=== PATIENT | female | born 1980 | race African-American/Black ===

== ENCOUNTER 2019-03-06 01:34 | Inpatient (IN) | payer OTHER ==
[~2019-03-06] VITALS: Ht 167.6 cm; Wt 61.1 kg
[2019-03-06 02:31] LABS: Basophils # (auto) 0 uL; Basophils % (auto) 0.1 % (0.0-2.0); Eosinophils # (auto) 0 uL; Hematocrit 37.8 % (36.0-46.0); Hemoglobin 12.5 g/dL (12.2-16.2); Lymphocytes # (auto) 0.5 uL; Lymphocytes % (auto) 4.5 % (10.0-50.0); Mean Corpuscular Hemoglobin 27.1 pg (28.0-32.0); Mean Corpuscular Volume 82.2 fL (80.0-100.0); Monocytes # (auto) 0.5 uL; Monocytes % (auto) 4.5 % (0.0-12.0); Neutrophils # (auto) 10.4 uL; Neutrophils % (auto) 90.9 % (37.0-80.0); Platelet Count (auto) 228 10^3/uL (140-450); Red Cell Distribution Width 13.9 % (11.8-14.3); White Blood Cell 11.4 10^3/uL (4.4-10.8)
[2019-03-06 02:47] LABS: Calcium 8.3 mg/dL (8.5-10.1); Chloride 100 mmol/L (98-107); Potassium 3.7 mmol/L (3.5-5.1); Sodium 132 mmol/L (136-145)
[2019-03-06 02:48] LABS: Acetaminophen < 2.0 ug/mL (10-30); Salicylate < 1.7 mg/dL (2.8-20.0)
[2019-03-06 02:50] LABS: Alanine Aminotransferase 35 U/L (13-56); Albumin 3.7 g/dL (3.4-5.0); Anion Gap 10 (5-15); BUN/Creatinine Ratio 8.3; Blood Alcohol < 3.0 mg/dL (0-5); Blood Urea Nitrogen 9 mg/dL (7-18); Carbon Dioxide 22 mmol/L (21-32); GFR African American 74 mL/min; GFR Non-African American 61 mL/min; Glucose 151 mg/dL (74-106)
[2019-03-06 02:55] LABS: Alkaline Phosphatase 64 U/L (45-117); Aspartate Aminotransferase 36 U/L (15-37); Bilirubin, Total 0.4 mg/dL (0.2-1.0); Total Protein 7.4 g/dL (6.4-8.2)
[2019-03-06 05:24] LABS: Alcohol, Urine < 3.0 mg/dL (0-5); Amphetamine Screen, Urine NEGATIVE (NEGATIVE); Barbiturate Scree,Urine NEGATIVE (NEGATIVE); Benzodiazephine Screen, Urine NEGATIVE (NEGATIVE); Cannabinoid Screen, Urine NEGATIVE (NEGATIVE); Cocaine Screen, Urine NEGATIVE (NEGATIVE); Opiate Scree,Urine NEGATIVE (NEGATIVE); Phencyclidine Screen, Urine NEGATIVE (NEGATIVE)
[2019-03-06 09:33] LABS: Urine Amorphous Crystal FEW /hpf (None Seen); Urine Bacteria FEW /hpf (None Seen); Urine Blood 1+ /uL (Negative); Urine Mucus FEW (None Seen); Urine Specific Gravity 1.022 (1.001-1.035); Urine WBC 9 /hpf (0 - 5)
[2019-03-06] MEDS ORDERED: MORPHINE SULF INJ 2 MG/ML SYRINGE 1ML IV PRN (11:15)
[2019-03-06] MEDS ORDERED: ONDANSETRON HCL 4 MG/2 ML VIAL IV PRN (11:15)
[2019-03-06] MEDS ORDERED: NITROGLYCERIN 0.4 MG SL TAB SL PRN (11:15)
[2019-03-06] MEDS: POTASSIUM CHL 20MEQ/100ML 100 ML IV SCH ×2 (11:58→15:31)
[2019-03-06] MEDS: SODIUM CHLORIDE 0.9% 1,000 ML IV SCH ×2 (12:14→20:54)
[2019-03-06] MEDS ORDERED: BUPR100T14 PO (13:28)
[2019-03-06] MEDS ORDERED: RISP0.5T12 PO (13:28)
--- NOTE | 2019-03-06 14:00 | NUR ---
Per Lorene (House Sup) no need for Tele Psy consult at this time until patient is medically clear.
[2019-03-06 14:15] VITALS: BP 143/75
--- NOTE | 2019-03-06 14:30 | NUR ---
Telemetry admit from ER JEREMIEISHA admitted to Telemetry unit after SBAR received. Patient oriented to BELLE VELASQUEZ, primary RN, unit, room, bed, and unit policies regarding patient care and visiting hours. Patient now on continuous telemetry monitoring, tele box # [id number] and telemetry reading on arrival to unit is . Patient placed on bedside oxygen, weighed by bed scale and encouraged to call if they need something. All questions and concerns addressed, patient verbalized understanding.
--- NOTE | 2019-03-06 14:30 | NUR ---
EKG 12 LEADS DONE , READ BY .
[2019-03-06 17:00] VITALS: BP 134/79
--- NOTE | 2019-03-06 19:02 | NUR ---
DAOG 12 LEADS DONE AND REPORTED TO DR. SHIPMAN. Signed: 03/06/19 at 1902 by BELLE VELASQUEZ RN
[2019-03-06 22:06] VITALS: BP 144/77
--- NOTE | 2019-03-06 23:06 | NUR ---
EKG 12 LEADS DONE: EKG 12 LEADS DONE AND REPORTED TO DR. RAUL MD COVERING FOR DR. SHIPMAN PATIENTS. UPDATED ON PATIENTS STATUS AND MEDICAL STATE AND REVIEW OF EKG 12 LEAD. SAID TO OBTAIN ANOTHER EKG IN THE AM. NO NEW ORDERS GIVEN
--- NOTE | 2019-03-07 02:21 | NUR ---
EKG 12 LEADS DONE: EKG 12 LEADS DONE AND PLACED IN CHART AT THIS TIME. NO S/S OF DISTRESS SOB NOTED. PATIENT RESTING IN BED WITH BREATHS EVEN AND UNLABORED. SITTER AT THE BEDSIDE.
[2019-03-07 05:00] VITALS: BP 136/85
[2019-03-07] MEDS: SODIUM CHLORIDE 0.9% 1,000 ML IV SCH ×2 (05:39→14:25)
--- NOTE | 2019-03-07 05:51 | NUR ---
Opening Shift Note Assumed care of patient, awake and alert oriented x4. No S/S of distress/SOB or pain noted. Bed is in lowest locked position with bed rails up x2 and call light is within reach of the patient. Sitter at the bedside. Instructed on POC and to call for assist PRN. Addendum: 03/07/19 at 0603 by Cindy Hernández RN RN wrong date and time: Date meant for 03/06/19 at 194
--- NOTE | 2019-03-07 06:30 | NUR ---
EKG 12 LEADS DONE: EKG 12 LEADS DONE AND PLACED IN CHART AT THIS TIME. NO S/S OF DISTRESS SOB NOTED. PATIENT RESTING IN BED WITH BREATHS EVEN AND UNLABORED. SITTER IS AT THE BEDSIDE.
[2019-03-07 06:56] LABS: Basophils # (auto) 0 uL; Basophils % (auto) 0.2 % (0.0-2.0); Eosinophils # (auto) 0 uL; Eosinophils % (auto) 0.1 % (0.0-7.0); Hematocrit 37.7 % (36.0-46.0); Hemoglobin 12.4 g/dL (12.2-16.2); Lymphocytes # (auto) 1.4 uL; Lymphocytes % (auto) 12.8 % (10.0-50.0); Mean Corpuscular Hgb Conc. 32.8 g/dL (32.0-36.0); Mean Corpuscular Volume 82.4 fL (80.0-100.0); Monocytes # (auto) 1.1 uL; Monocytes % (auto) 10.4 % (0.0-12.0); Neutrophils # (auto) 8.3 uL; Neutrophils % (auto) 76.5 % (37.0-80.0); Platelet Count (auto) 206 10^3/uL (140-450); Red Blood Cells 4.57 10^6/uL (4.0-5.20); Red Cell Distribution Width 14.1 % (11.8-14.3); White Blood Cell 10.9 10^3/uL (4.4-10.8)
[2019-03-07 07:12] LABS: BUN/Creatinine Ratio 5.4; Magnesium 2.1 mg/dL (1.6-2.6); Potassium 4.2 mmol/L (3.5-5.1)
--- NOTE | 2019-03-07 07:30 | NUR ---
Opening Shift Note Assumed care of patient, awake and alert, oriented x 4 and verbally responsive. Respiratory even and unlabored. No S/S of distress/SOB or pain. Skin is warm and dry to touch. No s/s any injuries noted. Instructed on POC and to call for assist PRN, will continue to monitor for changes Q1hr and PRN.
[2019-03-07 09:00] VITALS: BP 142/81
--- NOTE | 2019-03-07 09:41 | NUR ---
Per Dr. Torrez patient is medically clear from his point of view, will call Tele psy consult.
--- NOTE | 2019-03-07 09:50 | NUR ---
Tele Psy consult placed to tele [employer]. Awaiting to call back.
[2019-03-07 13:00] VITALS: BP 127/73
--- NOTE | 2019-03-07 13:45 | NUR ---
Received Psy report recommend to transfer patient to inpatient psychiatry service, jessica garcía (Lorene) and Lit (KAI) notified. SS consult placed.
--- NOTE | 2019-03-07 13:47 | NUR ---
Per Lorene (house sup) needs to place SS consult for inpatient psy facility, order placed. Awaiting for SS to call back.
--- NOTE | 2019-03-07 13:47 | NUR ---
Faxed Psy report to [facility] per Dr. Recinos requested # .
--- NOTE | 2019-03-07 14:00 | NUR ---
Patient notified regarding patient needs to transfer to inpatient psy facility.
--- NOTE | 2019-03-07 15:00 | NUR ---
Spoke to Tru (adrián) regarding , informed her that Diana (RN) will do it.
--- NOTE | 2019-03-07 15:40 | NUR ---
Spoke to Lit COREY) regarding , instructed to call Diana (LYNN) to do it.
--- NOTE | 2019-03-07 15:52 | NUR ---
Received a call from Lit COREY) said Elli (TERRENCE) needs recommendation from psychiatrist and fax to [phone]. Still wait for , will fax everything.
--- NOTE | 2019-03-07 16:45 | NUR ---
51/50 done by Delfino BAILEY.
--- NOTE | 2019-03-07 16:50 | NUR ---
FAXED AND RECOMMENDATION FROM PSYCHIATRIST TO RAMESH (TERRENCE).
--- NOTE | 2019-03-07 17:00 | NUR ---
Received a call from Elli velasquez already spoke with Dr. Torrez regarding transfer situation.
--- NOTE | 2019-03-07 17:30 | NUR ---
Received a call from [employer] , spoke to Soraida said already received patient info.
--- NOTE | 2019-03-07 19:10 | NUR ---
Opening Shift Note Received report from Ely giraldo RN. Assumed care of patient, awake and alert, resting in bed, with family at bedside. No S/S of distress/SOB or pain. Instructed on POC and to call for assist PRN, will continue to monitor for changes Q1hr and PRN. Bed placed in lowest position and call light within reach.
[2019-03-07 21:33] VITALS: BP 143/84
[2019-03-08] MEDS: SODIUM CHLORIDE 0.9% 1,000 ML IV SCH ×3 (02:10→09:35)
[2019-03-08 05:38] VITALS: BP 123/73
--- NOTE | 2019-03-08 07:00 | NUR ---
ROUNDS PATIENT IS RESTING IN BED ALERT AND AWAKE, NO DISTRESS NOTED AND PATIENT DENIES PAIN.
--- NOTE | 2019-03-08 07:30 | NUR ---
OPENING NOTE ASSUMED CARE OF PT. PT ALERT AND ORIENTED. NO S/S OF SOB/DISTRESS. DENIES ANY PAIN. SAFETY PRECAUTIONS IN PLACE. BED SET TO LOWEST POSITION/LOCKED. BEDSIDE RAILS UP X2. SITTER AT BEDSIDE. CALL LIGHT WITH IN REACH. INSTRUCTED PT TO CALL FOR ASSISTANCE. UPDATE ON POC. PT VERBALIZED UNDERSTANDING. WILL CONTINUE TO MONITOR Q1HR AND PRN.
--- NOTE | 2019-03-08 08:10 | NUR ---
I spoke to Rubio at [facility] ( ph [phone]) and he stated pt is on their "board" to find a facility, he will put in his notes on progression of finding a facility for this pt. So far we have no facilities for acceptance of pt.
[2019-03-08 08:27] VITALS: BP 130/90
--- NOTE | 2019-03-08 08:43 | NUR ---
spoke to o/c cm for [facility] and he stated [facility] is resonsible for psych care for this pt since it is a carve out to the insurance. [facility]'s ph # is [phone]. I was calling [employer] to see if they had any success with certain facilities to speed up the process but CM stated he was not aware of any particular facility.
[2019-03-08 13:00] VITALS: BP 167/93
[2019-03-08 15:03] VITALS: BP 145/93
[2019-03-08 17:00] VITALS: BP 127/74
--- NOTE | 2019-03-08 19:30 | NUR ---
Opening Shift Note Assumed care of patient, from Carine RN. Patient is awake and alert x4. Family members noted at the bedside. Patient denies pain at this time. Instructed on plan of care and to call for assistance as needed, patient verbalized understanding. Bed is locked in lowest position, side rails x 2 are up, call light is within reach, and sitter noted at bedside for safety precautions.
[2019-03-08 22:00] VITALS: BP 130/72
--- NOTE | 2019-03-08 22:30 | NUR ---
IV INSERTION IV access obtained, via clean sterile technique by inserting 22 gauge catheter at left forearm after 1 attempt. IV secured properly. IV flushing well with no resistance. Patient denies pain, tenderness, or burning sensation to IV site. Patient educated to call this RN if IV site becomes tender or painful. Patient tolerated well. IV REMOVAL IV to right hand DC'd with clean sterile technique, catheter fully intact. Pressure dressing applied to site. Patient tolerated well.
--- NOTE | 2019-03-09 01:13 | NUR ---
[facility] s/w Amy no beds [facility] Ofelia no beds [facility] s/w Kassidy no beds
[2019-03-09 05:00] VITALS: BP 138/78
[2019-03-09] MEDS: SODIUM CHLORIDE 0.9% 1,000 ML IV SCH ×4 (05:53→22:33)
--- NOTE | 2019-03-09 06:04 | NUR ---
Called contracted facilities. Still no beds at this time. Will handoff to next shift to f/up later in the morning for possible discharges
[2019-03-09 09:00] VITALS: BP 140/87
--- NOTE | 2019-03-09 09:25 | NUR ---
Received change of shift report, will continue to help facilitate placement
--- NOTE | 2019-03-09 11:47 | NUR ---
Nutrition Assessment Notes please see attached link for complete assessment Est. Needs based on BW 60 [id number] kcal (25-30 kcal/kg), 60-72 g protein (1.0-1.2 g/kg) Addendum: 03/09/19 at [address] Amended: Links added.
--- NOTE | 2019-03-09 12:43 | NUR ---
PT AND FAMILY REQUESTING RE-EVALUATION. DR. MURILLO MADE AWARE OF PT'S WISHES. PER MD; OK TO CALL IN A RE-EVALUATION.
[2019-03-09 13:00] VITALS: BP 146/100
--- NOTE | 2019-03-09 14:39 | NUR ---
RE-EVALUATION CONSULT INPUT TELE-PSYCH CONSULT IN PROGRESS.
--- NOTE | 2019-03-09 14:55 | NUR ---
TELE PSYCH CONSULT COMPLETED.
[2019-03-09 17:00] VITALS: BP 146/83
--- NOTE | 2019-03-09 19:30 | NUR ---
Opening Shift Note Assumed care of patient, from Ari BAILEY. Patient is awake and alert x4. Patient denies pain at this time. Instructed on plan of care and to call for assistance as needed, patient verbalized understanding. Bed is locked in lowest position, side rails x 2 are up, call light is within reach, and sitter noted at bedside for safety precautions.
--- NOTE | 2019-03-09 19:57 | NUR ---
SPOKE WITH TELE PSYCH RE: TELE PSYCH REPORT Called tele psych, spoke with Lorenzo, and requested tele psych report from tele psych reevaluation that was completed earlier today. Per Lorenzo he will fax over the tele psych report and if tele psych report is not received in approximately 10-15 minutes call back to follow up.
--- NOTE | 2019-03-09 20:20 | NUR ---
TELE PSYCH REPORT RECEIVED Tele psych report received and placed in hardchart.
[2019-03-09 22:00] VITALS: BP 133/90
[2019-03-10 05:19] VITALS: BP 132/73
[2019-03-10] MEDS: SODIUM CHLORIDE 0.9% 1,000 ML IV SCH (06:53)
--- NOTE | 2019-03-10 08:16 | NUR ---
Opening Shift Report Received report on the patient. Awake sitting up in bed. Patient shows no signs of distress at this time. Discussed plan of care with the patient. Bed is in lowest position, side rails up X2, and call light is within reach. Will continue to monitor.
[2019-03-10 09:18] VITALS: BP 130/79
--- NOTE | 2019-03-10 09:30 | NUR ---
at station Spoke with Dr. Leon regarding patient. Telepsych has cleared patient and patient is no longer on [address] Leon. patient is clear to be discharged according to previous order.
[2019-03-10 11:33] VITALS: BP 132/73
[2019-03-10 12:40] VITALS: BP 132/73
[2019-03-10 12:52] VITALS: BP 123/68
--- NOTE | 2019-03-10 14:00 | NUR ---
Discharge Discharge instructions given as ordered. Encourage to follow up with PMD as instructed. Appointment made for patient's psychiatrist. Primary care appointment not made as offices were at lunch during attempted calls. All questions and concerns addressed. Patient verbalized understanding. Medication reconciliation form completed and copy given to patient. Patient states that she has her medications already at home. She does not need any new prescriptions. IV removed with catheter intact, pressure dressing applied. Telemetry unit returned to ICU. Patient taken to vehicle with all personal belongings, accompanied by family members. No distress noted at time of departure.
--- NOTE | 2019-03-10 15:16 | NUR ---
Assessment Pt is a 38 year old alert and oriented female. Pt lives with her mother and 8 year old daughter. Pt admitted due to overdosing on medication. Pt stated that she has been diagnosed with depression with psychotic features and states that she has been prescribed lots of different medication but is not always consistent with it. Pt stated that the night it happened, she had just tucked her daughter in for bed and she went to take the prescribed amounts of medication but she very impulsively took way more than she intended to. Pt stated that she felt in a fog and confused when she decided to take them and immediately afterwards she regretted it and told her mother what she had done. Her mom then took her to the hospital. Pt stated that she meets regularly with a therapist and a psychiatrist that regulates her medication. SW discussed whether the pt is still feeling suicidal, pt stated that she isn't. Pt stated that she wants to live and go to school and be there for her daughter. SW discussed triggers with pt and assessed pt support group. Pt stated that she is going to now let her mom handle regulating her medication so that this doesn't happen again. Pt states that she has no intent to let it happen again. Pt stated that she will also talk with her psychiatrist about different medication options. Pt receives SSI monthly of $930 and states that she is able to meet her needs. Pt is ambulatory and independent with ADL's, cooking and cleaning. Pt stated that her mom would be transporting her home upon d/c. SW offered support group information for substance abuse and mental illnesses. Pt declined needing the information at this time. Pt was on a 5150 hold but after a meeting with a tele-psych, pt was cleared of hold. Pt stated that she felt safe to d/c home. Pt to d/c home upon medical clearance. Addendum: 03/10/19 at 1530 by HORACE REED Amended: Links added.
== END 2019-03-10 14:15 | disposition home or self-care (01) | DRG 812 ==
LOC: EDBD 01:34 → ER 01:39 → TELE 01:40 → TELE-WESTW 14:37
PROVIDERS: ADMIT Internal Medicine; ATTEND Internal Medicine
DX: T43.292A Poisoning by other antidepressants, intentional self-harm, initial encounter (principal); F20.9 Schizophrenia, unspecified; F31.9 Bipolar disorder, unspecified; Z81.8 Family history of other mental and behavioral disorders; T43.592A Poisoning by other antipsychotics and neuroleptics, intentional self-harm, initial encounter; Y92.89 Other specified places as the place of occurrence of the external cause
CPT/HCPCS: 36415; 80048; 80053; 80307; 80320; 80329; 81001; 81025; 83735; 85025; 93005; G0378; J3480

== ENCOUNTER 2022-05-07 13:57 | Emergency (ER) | payer OTHER ==
[~2022-05-07] VITALS: Ht 167.6 cm; Wt 69.0 kg
[~2022-05-07 13:57] MED LIST: BUPR-160 PO; RISP0.5T17 PO
[2022-05-07 16:54] VITALS: BP 119/86
[2022-05-07 17:15] LABS: Basophils % (auto) 0.5 % (0.0-2.0)
[2022-05-07 17:17] LABS: Basophils # (auto) 0.1 10 ^3/uL (0-0.2); Eosinophils # (auto) 0.1 10 ^3/uL (0-0.8); Eosinophils % (auto) 1.3 % (0.0-7.0); Hematocrit 41.2 % (36.0-46.0); Hemoglobin 13.4 g/dL (12.2-16.2); Lymphocytes # (auto) 2.5 10 ^3/uL (0.4-5.4); Mean Corpuscular Hemoglobin 26.4 pg (28.0-32.0); Mean Corpuscular Hgb Conc. 32.6 g/dL (32.0-36.0); Mean Corpuscular Volume 81.1 fL (80.0-100.0); Monocytes # (auto) 0.8 10 ^3/uL (0-1.3); Monocytes % (auto) 7.9 % (0.0-12.0); Neutrophils # (auto) 6.2 10 ^3/uL (1.6-8.6); Neutrophils % (auto) 64.3 % (37.0-80.0); Nucleated Red Blood Cells % 0.2 %; Red Blood Cells 5.09 10^6/uL (4.0-5.20); Red Cell Distribution Width 14.3 % (11.8-14.3); White Blood Cell 9.7 10^3/uL (4.4-10.8)
[2022-05-07 17:27] LABS: Albumin 3.5 g/dL (3.4-5.0); Calcium 8.5 mg/dL (8.5-10.1); Potassium 4.5 mmol/L (3.5-5.1)
[2022-05-07 17:31] LABS: BUN/Creatinine Ratio 17.7; Bilirubin, Total 0.3 mg/dL (0.2-1.0); Total Protein 6.9 g/dL (6.4-8.2)
[2022-05-07] MEDS ORDERED: AZITTAB PO (17:41)
== END 2022-05-07 18:18 | disposition home or self-care (01) ==
LOC: ER 14:05
DX: J32.9 Chronic sinusitis, unspecified (principal); J18.9 Pneumonia, unspecified organism; N17.9 Acute kidney failure, unspecified; R07.89 Other chest pain; Z79.2 Long term (current) use of antibiotics; Z79.899 Other long term (current) drug therapy; Z88.8 Allergy status to other drugs, medicaments and biological substances
CPT/HCPCS: 36415; 71045; 80053; 84484; 85025; 93005